=== PATIENT | female | born 1980 ===

== ENCOUNTER 2023-04-26 11:54 | Emergency (ER) | payer BC, SELFPAY ==
[2023-04-26] VITALS (27 sets, daily range): BP systolic 49–132; BP diastolic 22–120; PULSE 77–123; RESP 9–40; TEMP 35.6; O2SAT 86–100; BMI 41.2
[2023-04-26] MEDS: TRANEXAMIC ACID 100 MG/ML INJ 1000 MG IV (12:03)
[2023-04-26] MEDS: MIDAZOLAM HCL 1 MG/ML inj 2 MG IVP (12:08)
[2023-04-26 12:10] LABS: Lactate* 3.8 mmol/L (0.5-1.9)
[2023-04-26 12:13] LABS: Basophils Percent Auto 0.1 % (0.0-3.0); Eosinophils Percent Auto 1.5 % (0.0-7.0); Hematocrit 38.7 % (33.0-51.0); Hemoglobin* 12.8 gm/dL (12.0-16.0); Immature Granulocytes Pct Auto 0.4 %; Lymphocytes Percent Auto 28.7 % (20-44); Mean Corpuscular HGB Conc 33 gm/dL (32-36); Mean Corpuscular Hemoglobin 31 pg (26-34); Mean Corpuscular Volume 93 fL (80-100); Monocytes Percent Auto 4.5 % (0.0-11.0); Neutrophils Percent Auto 64.8 % (42.0-72.0); Platelet Count* 385 K/uL (140-440); RDW Coefficient of Variation % 11.8 % (11.5-15.5); Red Blood Count 4.16 m/uL (4.00-5.20); White Blood Count* 20.66 K/uL (4.50-11.00)
[2023-04-26 12:16] LABS: Slide Review Reflex No
[2023-04-26] MEDS: fentaNYL 100 MCG/2 ML inj 50 MCG IV ×3 (12:18→12:33)
[2023-04-26] MEDS: PROPOFOL 10 MG/ML INJ 100 MG IVP (12:33)
[2023-04-26 12:36] LABS: Albumin* 3.7 g/dL (3.3-5.0); Chloride* 108 mmol/L (96-114)
[2023-04-26 12:37] LABS: Potassium* 3.8 mmol/L (3.6-5.1); Sodium* 137 mmol/L (135-149)
[2023-04-26 12:39] LABS: Bilirubin Total* 0.6 mg/dL (0.1-1.5); Carbon Dioxide* 19 mmol/L (20-32); Creatinine* 1.2 mg/dL (0.5-1.5); Estimated Glomerular Filt Rate 58 ml/min; Total Protein* 6.4 g/dL (6.0-8.3)
[2023-04-26 12:40] LABS: Alanine Aminotransferase* 34 U/L (4-35); Alkaline Phosphatase* 45 U/L (40-150); Aspartate Amino Transferase* 50 U/L (12-35); Blood Urea Nitrogen* 16 mg/dL (5-24); Calcium* 8.3 mg/dL (8.4-10.6); Glucose* 151 mg/dL (60-115)
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
--- NOTE | 2023-04-26 12:40 | ED.NURSE ---
Pts phone and ID given to [facility] paramedics
[2023-04-26 12:43] LABS: Ethanol* < 0.01 % (0.01-0.03)
[2023-04-26] MEDS: KETAMINE HCL 500 MG in 0.9 % SODIUM CHLORIDE 500 ML 500 ML 400 MG IVPB (12:45)
[2023-04-26] MEDS: KETAMINE HCL 100 MG/ML inj IV (12:47)
--- NOTE | 2023-04-26 13:00 | ED.NURSE ---
Vital monitor transferred to EMS vital machine at 1240.
--- NOTE | 2023-04-26 13:06 | ED.NURSE ---
Pt transported to [facility] ED via [facility]. Report called to ED Rn. See TTA reccord for additional details.
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
[2023-04-26] MEDS: 0.9 % SODIUM CHLORIDE 1000 ml 1,000 ML IV ×2 (14:46→14:47)
== END 2023-04-26 14:00 | disposition short-term general hospital (02) ==
PROVIDERS: Emergency Provider Family Medicine
DX: R41.82 Altered mental status, unspecified (principal); I95.9 Hypotension, unspecified; J96.90 Respiratory failure, unspecified, unspecified whether with hypoxia or hypercapnia; V43.52XA Car driver injured in collision with other type car in traffic accident, initial encounter
CPT/HCPCS: 31500; 36415; 36430; 71045; 76604; 76705; 80053; 82077; 83605; 85025; 86850; 86900; 86901; 86922; 93308; 96365; 96375; 99285; 99291; G0390; J2250; J2704; J3010; J3490; J7030; J7120; P9016